=== PATIENT | male | born 1995 | race Caucasian/White ===

== ENCOUNTER 2020-09-27 12:40 | Emergency (ER) | payer OTHER ==
[~2020-09-27] VITALS: Ht 182.9 cm; Wt 72.1 kg
[2020-09-27 12:50] VITALS: BP 117/74
--- NOTE | 2020-09-27 12:59 | NUR ---
Patient ambulated to bed 9. RN evaluating patient at bedside.
--- NOTE | 2020-09-27 13:00 | NUR ---
C/O L POSTERIOR THIGH ABCESS X10 DAYS, 6/10 PAIN. PT STATES HE ATTEMPTED TO POP IT A FEW DAYS AGO BUT IT CAME BACK. NO DRAINAGE NOTED, MILD REDNESS NOTED TO AREA. DENIES USING IM INJECTIONS OF ANY KIND. DENIES FEVER/N/V SINCE ABCESS BEGAN. BED IN LOW POSITON, SIDE RAIL UP X1.
--- NOTE | 2020-09-27 13:24 | NUR ---
Dr. Marsh is evaluating the patient at bedside.
[2020-09-27] MEDS ORDERED: ETHYL CHLORIDE 105 ML SPR TP ONE (13:41)
[2020-09-27 13:56] VITALS: BP 117/74
--- NOTE | 2020-09-27 13:56 | NUR ---
Patient discharged with v/s stable. Written and verbal after care instructions given and explained. Patient verbalized understanding. Ambulatory with steady gait. All questions addressed prior to discharge. Advised to follow up with PMD.
== END 2020-09-27 13:56 | disposition home or self-care (01) ==
LOC: MED 12:40
DX: L02.416 Cutaneous abscess of left lower limb (principal)
CPT/HCPCS: 99282

== ENCOUNTER 2023-02-22 12:37 | Emergency (ER) | payer OTHER ==
[~2023-02-22] VITALS: Ht 182.9 cm; Wt 83.0 kg
[2023-02-22 12:48] VITALS: BP 115/60
--- NOTE | 2023-02-22 13:00 | NUR ---
28 Y/O MALE BIB SELF C/O SORE THROAT X5 DAYS WITH DRY COUGH NKA PMH: DENIES
[2023-02-22] MEDS ORDERED: IBUP-2213 PO (13:17)
[2023-02-22] MEDS ORDERED: BENZ-300 PO (13:17)
[2023-02-22] MEDS ORDERED: PROM118S5 PO (13:17)
--- NOTE | 2023-02-22 13:32 | NUR ---
Patient discharged with v/s stable. Written and verbal after care instructions ABOUT PHARYNGITIS given and explained. Patient alert, oriented and verbalized understanding of instructions. Ambulatory with steady gait. All questions addressed prior to discharge. ID band removed. Patient advised to follow up with PMD. Rx of CEPACOL, MOTRIN, PROMTHAZINE DM given. Patient educated on indication of medication including possible reaction and side effects. Opportunity to ask questions provided and answered.
== END 2023-02-22 13:32 | disposition home or self-care (01) ==
LOC: MED 12:37
DX: J02.9 Acute pharyngitis, unspecified (principal); Z20.822 Contact with and (suspected) exposure to COVID-19; Z79.899 Other long term (current) drug therapy
CPT/HCPCS: 87081; 99283